=== PATIENT | male | born 1990 | race Caucasian/White ===

== ENCOUNTER 2017-06-11 15:18 | Emergency (ER) | payer BC, OTHER, MEDICAID ==
[~2017-06-11] VITALS: Ht 180.3 cm; Wt 69.7 kg
[2017-06-11 16:04] LABS: CLARITY,URINE CLEAR (Clear); COLOR,URINE YELLOW (Yellow); GLUCOSE, URINE NEGATIVE (Neg); KETONES,URINE NEGATIVE (Neg); LEUKOCYTE ESTERASE ,URINE NEGATIVE (Neg); NITRITES, URINE NEGATIVE (Neg); OCCULT BLOOD,URINE NEGATIVE (Neg); PROTEIN,URINE NEGATIVE (Neg); UROBILINOGEN,URINE 0.2 E.U/dL (0.2-1.0)
[2017-06-11 16:09] LABS: UA COLLECTION TYPE CLN CATCH MIDSTREAM
[2017-06-11 16:13] LABS: URINE AMPHETAMINE SCREEN NEGATIVE (Neg); URINE BARBITUATE SCREEN NEGATIVE (Neg); URINE BENZODIAZEPINES SCREEN NEGATIVE (Neg); URINE CANNABINOID SCREEN POSITIVE (Neg); URINE COCAINE SCREEN NEGATIVE (Neg); URINE METHADONE SCREEN NEGATIVE (Neg); URINE OPIATE SCREEN NEGATIVE (Neg); URINE PHENCYCLIDINE SCREEN NEGATIVE (Neg)
[2017-06-11 16:17] VITALS: BP 130/69
[2017-06-11 16:30] LABS: BASOPHILS # (AUTO) 0.1 X10'3 (0-0.2); BASOPHILS % (AUTO) 0.7 % (0-1); EOSINOPHILS # (AUTO) 0.2 X10'3 (0-0.9); EOSINOPHILS % (AUTO) 2.5 % (0-6); HEMATOCRIT 43.8 % (42.0-52.0); HEMOGLOBIN 15.3 g/dl (14.0-17.9); LYMPHOCYTES # (AUTO) 1.5 X10'3 (1.1-4.8); LYMPHOCYTES % (AUTO) 17.7 % (21-51); MEAN CORPUSCULAR HEMOGLOBIN 33.9 PG (27.0-31.0); MEAN CORPUSCULAR HGB CONC 35.1 % (33.0-36.5); MEAN CORPUSCULAR VOLUME 96.8 FL (78-98); MEAN PLATELET VOLUME 7.9 FL (7.4-10.4); MONOCYTES # (AUTO) 0.8 X10'3 (0-0.9); MONOCYTES % (AUTO) 9.4 % (2-12); NEUTROPHILS # (AUTO) 5.9 X10'3 (1.8-7.7); NEUTROPHILS % (AUTO) 69.7 % (42-75); PLATELET COUNT 212 X10'3 (140-440); RED BLOOD COUNT 4.52 X10'6 (4.70-6.10); RED CELL DISTRIBUTION WIDTH 13.4 % (11.5-14.5); WHITE BLOOD COUNT 8.5 X10'3 (4.5-11.0)
[2017-06-11 16:37] LABS: ALANINE AMINOTRANSFERASE 39 U/L (12-78); ALBUMIN 4.1 G/DL (3.4-5.0); ALBUMIN/GLOBULIN RATIO 1.2 (1.1-1.5); ALKALINE PHOSPHATASE 80 IU/L (46-116); ANION GAP 7 (8-16); ASPARTATE AMINO TRANSFERASE 26 U/L (10-37); BILIRUBIN,TOTAL 0.4 MG/DL (0.1-1.0); BLOOD UREA NITROGEN 13 MG/DL (7-18); BUN/CREATININE RATIO 15.5 (5.4-32.0); CHLORIDE 104 MMOL/L (99-107); CREATININE 0.84 MG/DL (0.60-1.10); ETHANOL < 0.010 GM/DL (0.0-0.010); GLUCOSE 117 MG/DL (70-104); POTASSIUM 4.1 MMOL/L (3.5-5.1); SODIUM 140 MMOL/L (135-145); TOTAL PROTEIN 7.6 G/DL (6.4-8.2); eGFR > 90 ML/MIN
[2017-06-11] MEDS ORDERED: LORazepam 1 MG tablet PO ONE (20:25)
[2017-06-13] MEDS ORDERED: NO HOME MEDS (11:11)
== END 2017-06-12 01:24 | disposition home or self-care (01) ==
LOC: ER 15:18
DX: F31.4 Bipolar disorder, current episode depressed, severe, without psychotic features (principal); R45.851 Suicidal ideations
CPT/HCPCS: 36415; 80053; 80305; 80320; 81003; 84443; 85025; 99284

== ENCOUNTER 2017-06-12 00:10 | Inpatient (IN) | payer BC, OTHER, MEDICAID ==
[~2017-06-12] VITALS: Ht 180.3 cm; Wt 68.0 kg
[2017-06-12] MEDS ORDERED: acetaminophen 325mg tablet PO PRN (02:20)
[2017-06-12] MEDS ORDERED: FLU VACC QS2017-18 36MOS UP/PF 60 MCG/0.5 ML SYRINGE IMVAC ONE (06:25)
[2017-06-12 08:00] VITALS: BP 121/70
[2017-06-12] MEDS ORDERED: nicotine 14mg patch - 24hr TD SCH (08:00)
[2017-06-12] MEDS ORDERED: buPROPion 100mg tablet PO ONE (11:05)
[2017-06-12] MEDS ORDERED: buPROPion 75mg tablet PO ONE (11:15)
[2017-06-12] MEDS: LORazepam 1 MG tablet PO PRN ×2 (12:30→21:43)
[2017-06-12 19:55] VITALS: BP 123/61
[2017-06-12] MEDS: traZODone 50mg tablet PO PRN (21:43)
[2017-06-13 08:00] VITALS: BP 118/68
[2017-06-13] MEDS: nicotine 21mg patch - 24 hr TD SCH (08:00)
[2017-06-13] MEDS: buPROPion 75mg tablet PO SCH (08:04)
[2017-06-13] MEDS ORDERED: NO HOME MEDS (11:11)
[2017-06-13 19:34] VITALS: BP_SYST 135
[2017-06-13 19:37] VITALS: BP 135/78
[2017-06-13] MEDS: traZODone 50mg tablet PO PRN (21:43)
[2017-06-13] MEDS: LORazepam 1 MG tablet PO PRN (21:43)
[2017-06-14] MEDS: nicotine 21mg patch - 24 hr TD SCH (08:00)
[2017-06-14 08:02] VITALS: BP 112/79
[2017-06-14] MEDS: buPROPion 75mg tablet PO SCH ×2 (08:11→12:58)
[2017-06-14] MEDS: LORazepam 1 MG tablet PO PRN ×2 (09:00→21:53)
[2017-06-14 19:55] VITALS: BP 126/78
[2017-06-14] MEDS: traZODone 50mg tablet PO PRN (21:53)
[2017-06-15] MEDS: nicotine 21mg patch - 24 hr TD SCH (08:00)
[2017-06-15] MEDS ORDERED: hydrOXYzine 10 MG tablet PO PRN (08:05)
[2017-06-15 08:10] VITALS: BP 125/94
[2017-06-15] MEDS: buPROPion 75mg tablet PO SCH (08:17)
[2017-06-15] MEDS ORDERED: HYDR-3717 PO (09:40)
[2017-06-15] MEDS ORDERED: TRAZ-143 PO (09:40)
[2017-06-15] MEDS ORDERED: BUPR75TA12 PO (09:40)
== END 2017-06-15 11:25 | disposition home or self-care (01) | DRG 885 ==
LOC: ADULT MH 00:10
PROVIDERS: ADMIT Psychiatry & Neurology Psychiatry; ATTEND Psychiatry & Neurology Psychiatry
DX: F33.2 Major depressive disorder, recurrent severe without psychotic features (principal); R45.851 Suicidal ideations; F10.10 Alcohol abuse, uncomplicated; F17.210 Nicotine dependence, cigarettes, uncomplicated; F41.9 Anxiety disorder, unspecified; F12.288 Cannabis dependence with other cannabis-induced disorder; Z59.0 Homelessness; Z79.899 Other long term (current) drug therapy
CPT/HCPCS: 87070; 99406